=== PATIENT | male | born 1935 | race Caucasian/White ===

== ENCOUNTER 2016-10-15 11:52 | Emergency (ER) | payer MEDICARE, BC ==
[2016-10-15 13:37] LABS: Hematocrit 44 % (42-52); Hemoglobin 14.4 g/dl (14.0-18.0); Mean Corpuscular HGB Conc 33 g/dl (31-36); Mean Corpuscular Hemoglobin 31 pg (27-31); Mean Corpuscular Volume 96 fL (80-94); Mean Platelet Volume 9 um3 (7.4-10.4); Red Blood Count 4.58 10^6/ul (4.0-5.4); Red Cell Distribution Width 13 % (10.5-15); White Blood Count 12.9 10^3/ul (3.5-10.8)
[2016-10-15 13:48] LABS: Albumin 4.2 g/dL (3.2-5.2); BUN/Creatinine Ratio 22.6 (8-20); EGFR African American 113.4 (>60); EGFR Non-African American 88.1 (>60); Globulin 2.2 g/dL (2-4); Total Bilirubin 0.5 mg/dL (0.2-1.0); Total Protein 6.4 g/dL (6.4-8.9)
[2016-10-15 13:50] LABS: Troponin I 0.01 ng/mL (<0.04)
--- NOTE | 2016-10-15 13:57 | RAD ---
HISTORY: Vertigo COMPARISONS: None TECHNIQUE: Multiple contiguous axial CT scans were obtained of the head without intravenous contrast. FINDINGS: HEMORRHAGE/INFARCT: There is no hemorrhage or acute infarct. MASSES/SHIFT: There is no mass or shift. EXTRA-AXIAL SPACES: There are no extra-axial fluid collections. SULCI AND VENTRICLES: The sulci and ventricles are normal in size and position for the patient's stated age. CEREBRUM: There are no focal parenchymal abnormalities. BRAINSTEM: There are no focal parenchymal abnormalities. CEREBELLUM: There are no focal parenchymal abnormalities. VESSELS: The vessels are grossly normal. PARANASAL SINUSES: The paranasal sinuses are clear. ORBITS: The orbits are unremarkable. BONES AND SOFT TISSUE: No bone or soft tissue abnormalities are noted. OTHER: None IMPRESSION: NO ACUTE INTRACRANIAL PATHOLOGY.
[2016-10-15] MEDS ORDERED: Iohexol 350* (CONTRAST) 500 ML MDV IV ONE (15:35)
--- NOTE | 2016-10-15 16:24 | RAD ---
INDICATION: Vertigo. Request for CTA of the head and neck COMPARISON: CT brain same date TECHNIQUE: Axial source images were acquired with coronal and sagittal reconstructions. CT angiographic technique was utilized with injection of 80 mL Omnipaque 350. FINDINGS: Aortic arch: There are no CT angiogram abnormalities of the arch or the great vessels arising from the arch. There is tortuosity of the great vessels. Right carotid: The internal carotid artery, carotid bifurcation, extracranial portions of the internal carotid artery, carotid artery at the skull base, carotid siphon, and carotid termination appear widely patent. Left carotid:The internal carotid artery, carotid bifurcation, extracranial portions of the internal carotid artery, carotid artery at the skull base, carotid siphon, and carotid termination appear widely patent. Right middle and anterior cerebral arteries: There are no CT angiographic abnormalities of the middle or anterior cerebral arteries. Left middle and anterior cerebral arteries: There are no CT angiographic abnormalities of the middle or anterior cerebral arteries Right vertebral: The CT angiographic appearance of the vertebral artery is normal. Left vertebral: The CT angiographic appearance of the vertebral artery is normal. Basilar artery: The basilar artery and basilar tip appear normal. Posterior cerebral arteries: The distal distribution of the right and left posterior cerebral arteries is normal. [place]: The CT angiographic appearance of the [place] is normal. Source images show no evidence of mass or adenopathy within the neck. There are no focal parenchymal abnormalities or abnormal areas of enhancement. IMPRESSION: NO SIGNIFICANT CT ANGIOGRAPHIC ABNORMALITIES. CPT II Codes: 3100F [facility]
--- NOTE | 2016-10-15 16:57 | RAD ---
INDICATION: Dizziness COMPARISON: CT brain and CTA of the head and neck same date. TECHNIQUE: sagittal T1 FLAIR, axial diffusion, axial T1 FLAIR, axial T2, axial T2 FLAIR, and SWI images were acquired. FINDINGS: Craniocervical junction: The craniocervical junction appears normal. Ventricles/sulci: There is age-related cortical atrophy with compensatory dilatation of the CSF spaces. Brain parenchyma: There are scattered T2-weighted hyperintensities in the periventricular and subcortical white matter consistent with mild chronic microvascular ischemia. Intracranial hemorrhage: There is no intracranial hemorrhage. Extra-axial spaces: There are no extra-axial fluid collections or masses. Orbits: There are no MR abnormalities of the orbital structures. Paranasal sinuses/mastoid: The paranasal sinuses are clear. The mastoid air cells are well aerated.. Vascular: No abnormalities are seen. Other: None IMPRESSION: MILD AGE-RELATED ATROPHY AND SCATTERED T2-WEIGHTED HYPERINTENSITIES CONSISTENT WITH MILD CHRONIC MICROVASCULAR ISCHEMIA. NO FINDINGS OF ACUTE ISCHEMIA
[2016-10-15 17:57] VITALS: BP 180/52
--- NOTE | 2016-10-15 18:22 | ED ---
Artemio Mcclain Benjamin, scribed for Jj Osborn MD on 10/15/16 at 1331 . Dizziness - HPI Summary HPI Summary: 80yo male BIB EMS for dizziness and near syncopal episode this monring. Pt got sudden onset dizziness today around 0930~1000. Pt lay on the couch but then, pt started to get room spinning. 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 Pt felt lightheaded as well. Symptoms are now resolved. Pt has hx of hypoglycemia that gives similar symptoms, but today's episode was more worse. Pt had an EKG done at his PCP's office, which showed a possible a-fib. - History Of Current Complaint Chief Complaint: EDDizziness Stated Complaint: DIZZY/NEAR SYNCOPE Time Seen by Provider: 10/15/16 12:45 Hx Obtained From: Patient, Family/Mangle Press Catcher - family Onset/Duration: Resolved Timing: Minutes Severity Initially: Mild Severity Currently: Mild Character: Room Spinning, Lightheaded, Dizzy Aggravating Factor(s): Nothing Alleviating Factor(s): Nothing Associated Signs And Symptoms: Positive: Negative - Allergies/Home Medications Allergies/Adverse Reactions: Allergies Allergy/AdvReac Type Severity Reaction Status Date / Time No Known Allergies Allergy Verified 09/11/13 17:23 PMH/Surg Hx/FS Hx/Imm Hx Endocrine/Hematology History: Reports: Other Endocrine/Hematological Disorders - hypoglycemia Infectious Disease History: No Infectious Disease History: Denies: Traveled Outside the [place] in Last 30 Days - Family History Known Family History: Negative: Cardiac Disease, Hypertension, Diabetes - Social History Occupation: Retired Lives: With Family Alcohol Use: Occasionally Substance Use Type: Reports: None Smoking Status (MU): Former Smoker Review of Systems Constitutional: Negative Eyes: Negative ENT: Negative Cardiovascular: Negative Respiratory: Negative Gastrointestinal: Negative Genitourinary: Negative Musculoskeletal: Negative Skin: Negative Neurological: Other - dizziness; room spinning; lightheadedness Positive: Syncope - near Psychological: Normal All Other Systems Reviewed And Are Negative: Yes Physical Exam Triage Information Reviewed: Yes Vital Signs On Initial Exam: Initial Vitals Temp Pulse Resp BP Pulse Ox 97.2 F 79 18 185/59 97 10/15/16 12:30 10/15/16 12:30 10/15/16 12:30 10/15/16 12:30 06/01/17 12:30 Vital Signs Reviewed: Yes Appearance: Positive: Well-Appearing, No Pain Distress, Well-Nourished Skin: Positive: Warm, Skin Color Reflects Adequate Perfusion, Dry Head/Face: Positive: Normal Head/Face Inspection Eyes: Positive: Other: - nystagmus that doesnt fatigue on the right ENT: Positive: Normal ENT inspection Neck: Positive: Supple, Nontender Respiratory/Lung Sounds: Positive: Clear to Auscultation, Breath Sounds Present Cardiovascular: Positive: RRR Abdomen Description: Positive: Nontender, Soft Bowel Sounds: Positive: Present Musculoskeletal: Positive: Normal Neurological: Positive: Normal Psychiatric: Positive: Affect/Mood Appropriate - [place] Coma Scale Coma Scale Total: 15 Diagnostics - Vital Signs Vital Signs Temp Pulse Resp BP Pulse Ox 10/15/16 12:30 97.2 F 79 18 185/59 97 - Laboratory Lab Results: Lab Results 10/15/16 10/15/16 10/15/16 Range/Units 12:46 12:46 12:46 WBC 12.9 H (3.5-10.8) 10^3/ul RBC 4.58 (4.0-5.4) 10^6/ul Hgb 14.4 (14.0-18.0) g/dl Hct 44 (42-52) % MCV 96 H (80-94) fL MCH 31 (27-31) pg MCHC 33 (31-36) g/dl RDW 13 (10.5-15) % Plt Count 265 (150-450) 10^3/ul MPV 9 (7.4-10.4) um3 Neut % (Auto) 88.8 H (38-83) % Lymph % (Auto) 7.5 L (25-47) % [place] % (Auto) 3.2 (1-9) % Eos % (Auto) 0.2 (0-6) % Baso % (Auto) 0.3 (0-2) % Absolute Neuts (auto) 11.5 H (1.5-7.7) 10^3/ul Absolute Lymphs (auto) 1.0 (1.0-4.8) 10^3/ul Absolute Monos (auto) 0.4 (0-0.8) 10^3/ul Absolute Eos (auto) 0 (0-0.6) 10^3/ul Absolute Basos (auto) 0 (0-0.2) 10^3/ul Absolute Nucleated RBC 0.01 10^3/ul Nucleated RBC % 0.1 INR (Anticoag Therapy) 0.91 (0.89-1.11) Sodium 134 (133-145) mmol/L Potassium 4.0 (3.5-5.0) mmol/L Chloride 102 (101-111) mmol/L Carbon Dioxide 26 (22-32) mmol/L Anion Gap 6 (2-11) mmol/L BUN 19 (6-24) mg/dL Creatinine 0.84 (0.67-1.17) mg/dL Est GFR ( Amer) 113.4 (>60) Est GFR (Non-Af Amer) 88.1 (>60) BUN/Creatinine Ratio 22.6 H (8-20) Glucose 144 H (70-100) mg/dL Lactic Acid (0.5-2.0) mmol/L Calcium 9.0 (8.6-10.3) mg/dL Total Bilirubin 0.50 (0.2-1.0) mg/dL AST 14 (13-39) U/L ALT 15 (7-52) U/L Alkaline Phosphatase 46 (34-104) U/L Troponin I 0.01 (<0.04) ng/mL Total Protein 6.4 (6.4-8.9) g/dL Albumin 4.2 (3.2-5.2) g/dL Globulin 2.2 (2-4) g/dL Albumin/Globulin Ratio 1.9 (1-3) TSH Pending 10/15/16 Range/Units 12:46 WBC (3.5-10.8) 10^3/ul RBC (4.0-5.4) 10^6/ul Hgb (14.0-18.0) g/dl Hct (42-52) % MCV (80-94) fL MCH (27-31) pg MCHC (31-36) g/dl RDW (10.5-15) % Plt Count (150-450) 10^3/ul MPV (7.4-10.4) um3 Neut % (Auto) (38-83) % Lymph % (Auto) (25-47) % [place] % (Auto) (1-9) % Eos % (Auto) (0-6) % Baso % (Auto) (0-2) % Absolute Neuts (auto) (1.5-7.7) 10^3/ul Absolute Lymphs (auto) (1.0-4.8) 10^3/ul Absolute Monos (auto) (0-0.8) 10^3/ul Absolute Eos (auto) (0-0.6) 10^3/ul Absolute Basos (auto) (0-0.2) 10^3/ul Absolute Nucleated RBC 10^3/ul Nucleated RBC % INR (Anticoag Therapy) (0.89-1.11) Sodium (133-145) mmol/L Potassium (3.5-5.0) mmol/L Chloride (101-111) mmol/L Carbon Dioxide (22-32) mmol/L Anion Gap (2-11) mmol/L BUN (6-24) mg/dL Creatinine (0.67-1.17) mg/dL Est GFR ( Amer) (>60) Est GFR (Non-Af Amer) (>60) BUN/Creatinine Ratio (8-20) Glucose (70-100) mg/dL Lactic Acid 1.1 (0.5-2.0) mmol/L Calcium (8.6-10.3) mg/dL Total Bilirubin (0.2-1.0) mg/dL AST (13-39) U/L ALT (7-52) U/L Alkaline Phosphatase (34-104) U/L Troponin I (<0.04) ng/mL Total Protein (6.4-8.9) g/dL Albumin (3.2-5.2) g/dL Globulin (2-4) g/dL Albumin/Globulin Ratio (1-3) TSH Result Diagrams: 10/15/16 12:46 10/15/16 12:46 Lab Statement: Any lab studies that have been ordered have been reviewed, and results considered in the medical decision making process. - CT CT Brain WO CT Interpretation: No Acute Changes CT Interpretation Completed By: Radiologist CTA Chest CT Interpretation: No Acute Changes CT Interpretation Completed By: Radiologist - EKG 1235. Cardiac Rate: NL - 79bpm EKG Rhythm: Sinus Rhythm Ectopy: PVCs - Additional Comments Diagnostic Additional Comments: MRI Brain: IMPRESSION: MILD AGE-RELATED ATROPHY AND SCATTERED T2-WEIGHTED HYPERINTENSITIES CONSISTENT WITH MILD CHRONIC MICROVASCULAR ISCHEMIA. NO FINDINGS OF ACUTE ISCHEMIA Dizzy Course/Dx - Course Course Of Treatment: Mr. Rdz had vertigo which I am unable to determine was peripheral or central. Dr. Olivares was consulted and came to see him. He recommended CTA and MRI and, if negative, D/C and F/U. - Diagnoses Provider Diagnoses: Vertigo Discharge - Discharge Plan Condition: Stable Disposition: HOME Patient Education Materials: Vertigo (ED) Referrals: Vic Olivares MD [Medical Doctor] - Lincoln Garcia MD [Primary Care Provider] - 1 Day The documentation as recorded by the Artemio fajardo Benjamin accurately reflects the service I personally performed and the decisions made by me, Jj Osborn MD.
[2016-10-15 18:33] LABS: TSH (Thyroid Stimulating Horm) 1.05 mcIU/mL (0.34-5.60)
--- NOTE | 2016-10-15 22:42 | CONS ---
NEUROLOGY CONSULTATION: DATE OF CONSULT: 10/15/16 LOCATION: He is in the emergency room. REFERRING PHYSICIAN: Dr. Jj Osborn. CHIEF COMPLAINT: Dizziness. HISTORY OF PRESENT ILLNESS: Edwin Rdz is a 80-year-old right-handed man who was in his usual state of health this morning when he got up. He had breakfast and after that got up and started to feel extremely dizzy. There was a sense of that things might be spinning. He felt quite nauseous. He had difficulty walking and felt like he had to get to the bathroom. He made it to the bathroom where it sounds like he both defecated and urinated. He vomited as well. It was at that point, it was decided to contact the ambulance and he was brought in to the emergency room. In the emergency room, by verbal report, Dr. Osborn felt he had unidirectional nystagmus and one-fielded gaze. I was asked to see him in consultation. At this point, Mr. Rdz feels back to normal. He did note when he lied down on the couch briefly, I believe, after the bathroom event that parts of the room seemed to be moving back and forth. He was lying supine. He did not experience any double vision, change in speech , facial or extremity numbness, or incoordination of his upper extremities. There is no headache, ear pain, or change in hearing. There have been no recent colds, upper respiratory infections, sore throats, or ear pains. No recent head trauma. No prior history of vertigo or transient neurological deficits. There is no history of hypertension, diabetes, or heart disease. He has frequent ectopic beats and he says that when he last saw his primary care doctor , an EKG was gotten because of the extra beats and it was determined that he did not have atrial fibrillation. He quit smoking many decades ago. He has 1 glass of wine per day. PAST MEDICAL HISTORY: Essentially notable for excellent health. MEDICATIONS: The only medication he takes on a regular basis is a baby aspirin most every day, but not every day. ALLERGIES: He does not have any drug allergies. SOCIAL HISTORY: He lives at home with his . Quit smoking decades ago. He has 1 glass of wine per day. REVIEW OF SYSTEMS: Negative for cardiac, pulmonary, GI, neurological, or infectious illnesses. Generally, he is steady on his feet. No history of falls or head injuries. No change in hearing. No tinnitus. PHYSICAL EXAM: He is well-nourished and well-hydrated. Temperature 97.2, blood pressure 185/59, heart rate in the 70s and sinus on the monitor with frequent ectopic beats. Heart is otherwise in a regular rhythm without murmurs heard. Lungs are clear bilaterally. Carotid pulses are symmetrical and there are no cervical bruits. Oral mucosa is moist. Tympanic membranes are clear bilaterally. Neurological Exam: Pupils react equally from 3.5 to 2 mm. There is no ptosis. Visual sands are full to confrontation. Funduscopic exam is normal bilaterally. Eye movements are full. I cannot elicit any nystagmus. Head thrust test is limited because of neck range of motion, but appears to be normal, but again is quite limited. Facial musculature is intact and symmetric in upper and lower face. Facial sensation is symmetric to light touch, pin, and temperature. Palate and tongue appear normal. Palate rises symmetrically and tongue protrudes in the midline. There is no dysarthria. Hearing is intact to tuning fork bilaterally and [place]'s test is midline. Neck muscles appear normal, but there is limited range of motion. Motor exam reveals normal muscle tone and strength in the limbs proximally and distally. There is no pronator drift. He has normal resistive strength in upper and lower extremities proximally and distally. Sensory exam is notable for vibratory loss in the toes, but symmetrical vibration by the ankles. There is symmetrical temperature, pin, and light touch in the limbs. [id number] maneuver and [id number] maneuvers are normal bilaterally. Finger taps are normal in both hands. Reflexes are intact and symmetric other than absent ankle reflexes. Plantar responses are flexor bilaterally. He is able to stand up and feel steady on his feet. I did not attempt to walk him, however. He is alert and oriented to person, place, and time. He is an excellent detailed historian. He has good attention, concentration, and fund of knowledge. DIAGNOSTIC STUDIES/LAB DATA: Includes a CT scan of the brain, which I reviewed the images of and which looks completely normal. CBC is notable for mildly elevated white blood cell count at 12.9, neutrophils 88.8%, MCV is 96, and platelets 265,000. Chemistry profile is notable for a glucose of 144 this morning. Lactic acid is 1.1. 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 However, his symptoms resolved, and currently his exam is normal and so there are no physical findings that hang the diagnosis on, but rather just the history. The episodes lasted apparently upwards of about 6 hours or so. I would recommend an MRI of the brain to look for evidence of an acute infarction. Also, recommend a CT angiogram of the neck and brain to look for vertebrobasilar stenosis. If those are negative and he remains asymptomatic, then I think he could be discharged to home for followup with myself and his primary care doctor. Certainly, if there is evidence of significant vertebrobasilar stenosis or an acute infarction, he will need to be admitted. [id number]/[facility] #: [id number] LUCINA
== END 2016-10-15 18:03 | disposition home or self-care (01) ==
LOC: ED 11:52
DX: R42 Dizziness and giddiness (principal); R55 Syncope and collapse; Z87.891 Personal history of nicotine dependence
CPT/HCPCS: 36415; 70450; 70496; 70498; 70551; 80053; 83605; 84443; 84484; 85025; 85610; 93005; 99283; Q9967